=== PATIENT | female | born 1985 | race Two or more races ===

== ENCOUNTER 2022-07-18 08:10 | Day surgery (SDC) | payer OTHER ==
[~2022-07-18] VITALS: Ht 157.5 cm; Wt 59.0 kg
[2022-07-18] MEDS ORDERED: CILOXAN5 ML OTIC (14:36)
[2022-07-18] MEDS ORDERED: CEPHALEXIN500 MG PO (14:37)
== END 2022-07-18 17:15 | disposition home or self-care (01) ==
LOC: CIR.AMB 08:10
PROVIDERS: ATTEND Otolaryngology Otology & Neurotology
DX: H72.02 Central perforation of tympanic membrane, left ear (principal); H90.12 Conductive hearing loss, unilateral, left ear, with unrestricted hearing on the contralateral side; I95.9 Hypotension, unspecified; R73.9 Hyperglycemia, unspecified; D64.9 Anemia, unspecified; Z91.013 Allergy to seafood; Z91.010 Allergy to peanuts; Z86.16 Personal history of COVID-19; Z20.822 Contact with and (suspected) exposure to COVID-19

== ENCOUNTER 2023-02-05 15:30 | Inpatient (IN) | payer OTHER ==
[~2023-02-05] VITALS: Ht 157.5 cm; Wt 60.8 kg
[~2023-02-05 15:30] MED LIST: CEPHALEXIN500 MG PO; CILOXAN5 ML OTIC
[2023-02-14] MEDS ORDERED: KETO10TA2 PO (08:20)
[2023-02-14] MEDS ORDERED: COLACE100 MG PO (08:21)
[2023-02-14] MEDS ORDERED: SIMETHICONE125 M1 PO (08:24)
[2023-02-14] MEDS ORDERED: ACETAMINOPHEN-1 EAC2 PO (08:26)
== END 2023-02-14 10:41 | disposition home or self-care (01) | DRG 741 ==
LOC: O/R 02-12 07:07 → OB/GYN 02-12 07:07 → SURG 02-12 09:30 → OB/GYN 02-12 13:04
PROVIDERS: ADMIT Obstetrics & Gynecology; ATTEND Obstetrics & Gynecology
PROC: 0DNU4ZZ Release Omentum, Percutaneous Endoscopic Approach (ICD-10-PCS; 2023-02-12)
PROC: 0USG4ZZ Reposition Vagina, Percutaneous Endoscopic Approach (ICD-10-PCS; 2023-02-12)
PROC: 0UT98ZZ Resection of Uterus, Via Natural or Artificial Opening Endoscopic (ICD-10-PCS; principal; 2023-02-12 09:30)
DX: D06.0 Carcinoma in situ of endocervix (principal); Z20.822 Contact with and (suspected) exposure to COVID-19; N73.6 Female pelvic peritoneal adhesions (postinfective)

== ENCOUNTER 2023-02-20 13:49 | Inpatient (IN) | payer OTHER ==
[~2023-02-20] VITALS: Ht 157.5 cm; Wt 59.0 kg
[~2023-02-20 13:49] MED LIST changes: +ACETAMINOPHEN-1 EAC2 PO; +COLACE100 MG PO; +KETO10TA2 PO; +SIMETHICONE125 M1 PO
--- NOTE | 2023-02-20 14:51 | NUR ---
PACIENTE ALERTA Y ORIENTADA X3. REFIERE EL DEL 2022 LA . MOYA LE REMOVIO LA MATRIZ Y DESDE HACE 7 GARCIA ESTA CON CONSTIPACION Y DOLOR ABDOMINAL Y ESPALDA. SE UBICA EN AREA DE OBSERVACION Y SE PRESENTA A DR. WILKINSON.
--- NOTE | 2023-02-20 16:24 | NUR ---
SE EDUCA A PTE SOBRE [place] MEDICO ESTA REFIERE ENTENDER, SE DAT MUESTRAS DE LABORATORIO UTILIZANDO MEDIDAS ASEPTICAS. SE COLOCA H/L A PTE Y SE ADMINISTRAN MEDICAMENTO Y IV FLUIDS. SE NOTIFICA ESTUDIO DE CT IV PENDIENTE A REALIZAR.
== END 2023-02-28 12:39 | disposition home or self-care (01) | DRG 759 ==
LOC: ER 13:49 → OB/GYN 21:30
PROVIDERS: ADMIT Obstetrics & Gynecology; ATTEND Obstetrics & Gynecology
PROC: 0W9F3ZZ Drainage of Abdominal Wall, Percutaneous Approach (ICD-10-PCS; principal; 2023-02-20)
PROC: BW21Y0Z Computerized Tomography (CT Scan) of Abdomen and Pelvis using Other Contrast, Unenhanced and Enhanced (ICD-10-PCS; 2023-02-26)
DX: N73.8 Other specified female pelvic inflammatory diseases (principal); K59.09 Other constipation; N73.6 Female pelvic peritoneal adhesions (postinfective); Z20.822 Contact with and (suspected) exposure to COVID-19; B95.2 Enterococcus as the cause of diseases classified elsewhere; B96.1 Klebsiella pneumoniae [K. pneumoniae] as the cause of diseases classified elsewhere

== ENCOUNTER 2025-06-15 11:02 | Emergency (ER) | payer OTHER ==
[~2025-06-15] VITALS: Ht 157.5 cm; Wt 59.4 kg
[2025-06-15] MEDS ORDERED: MECLIZINE HCL 25 MG TABLET PO ONE ×2 (11:45→11:51)
[2025-06-15] MEDS ORDERED: METOCLOPRAMIDE HCL 5 MG/ML VIAL IV ONE (11:45)
[2025-06-15] MEDS ORDERED: 0.9 % SODIUM CHLORIDE 1,000 ML IV ONE (11:45)
[2025-06-15] MEDS ORDERED: METOCLOPRAMIDE HCL 5 MG/ML VIAL ONE (11:51)
[2025-06-15 12:37] LABS: BASO % 0.3 % (0.1-1.2); EOS # 0.01 (0.04-0.54); EOS % 0.1 % (0.7-7.0); LYMPH # 1.22 (1.18-3.74); LYMPH % 13.8 % (19.3-53.1); MEAN PLATELET VOLUME 11.10 fl (9.4-12.4); MONO # 0.30 (0.24-0.82); MONO % 3.4 % (4.7-12.5); NEUT # 7.27 (1.56-6.13); NEUT % 82.1 % (34.0-71.1); RED CELL DISTRIBUTION WIDTH 13.2 % (11.6-14.4)
[2025-06-15 13:18] LABS: BUN CREA RATIO 20.0 (7.0-25.0); CREATININE SERUM 0.76 mg/dL (0.55-1.02); GFR 84.29; GLUCOSE FASTING 118.0 mg/dL (65-100); OSMOLALITY SERUM 279.0 MOSM/KG (275-295)
== END 2025-06-15 15:37 | disposition home or self-care (01) ==
LOC: ER 11:02
PROVIDERS: Emergency Medicine
DX: H81.391 Other peripheral vertigo, right ear (principal); Z88.6 Allergy status to analgesic agent; Z91.010 Allergy to peanuts; Z91.013 Allergy to seafood